=== PATIENT | female | born 1955 | race Caucasian/White ===

== ENCOUNTER 2017-08-05 08:41 | Outpatient (CLI) | payer OTHER ==
--- NOTE | 2017-08-05 14:46 | ULT ---
ABDOMEN ULTRASOUND COMPLETE: Date: 08/05/17 HISTORY: Elevated LFTs. COMPARISON: None. TECHNIQUE: Utilizing a multihertz transducer, sonographic imaging of the abdomen is performed in the longitudina l and transverse plane. FINDINGS: Visualized aorta has a normal caliber measuring 1.8 cm. Visualized IVC is unremarkable. The head and proximal pancreatic body have a normal echotexture. Remainder of the pancreas is obscured. Heterogeneous echotexture of the liver. Right hepatic lobe measures 14.6 cm. Limited evaluation for h epatic masses and intrahepatic biliary dilatation. Multiple echogenic foci in the lumen of the gallbladder, compatible with gallstones. Largest gallston e measures 1.8 x 1.5 x 1.9 cm. Gallbladder wall is not thickened. No pericholecystic fluid. Negative Burgess's sign. Common bile duct diameter is 0.4 cm. Right and left kidney have a normal cortical echotexture. Bilaterally, no hydronephrosis. Right kidne y measures 8.2 x 4.6 x 5.2 cm. Left kidney measures 9.5 x 4.8 x 4.1 cm. There is scarring in the left upper pole. Spleen has a normal echotexture, measuring 7.4 cm. There appears to be a calcification in the dependent portion of the urinary bladder measuring 1.5 x 1 .0 x 1.6 cm. IMPRESSION: 1. Heterogeneous hepatic parenchymal echotexture. If there is concern for hepatic masses, consider l iver mass protocol CT. 2. Sonographic evidence of cholelithiasis without evidence of cholecystitis. 3. Bladder calculus. POS: [facility]
== END 2017-08-05 08:42 | disposition home or self-care (01) ==
LOC: ULT 08:41
PROVIDERS: ATTEND Physician Assistant
DX: R74.8 Abnormal levels of other serum enzymes (principal); K76.89 Other specified diseases of liver; K80.20 Calculus of gallbladder without cholecystitis without obstruction; N21.0 Calculus in bladder
CPT/HCPCS: 76700

== ENCOUNTER 2017-09-16 07:23 | Day surgery (SDC) | payer OTHER ==
[2017-09-13 09:14] VITALS: BMI 28.1
[~2017-09-16 07:23] MED LIST: FLU VACC QS2017-18 36 mo. & older 0.5 ML SYRINGE IM ONE
[2017-09-16 07:43] LABS: Hemoglobin 13.5 g/dL (12.0-16.0); Mean Corpuscular HGB CONC 33.6 g/dL (32.0-36.0); Mean Corpuscular Hemoglobin 29.1 pg (27.0-31.0); Mean Corpuscular Volume 86.5 fl (81.0-99.0); Mean Platelet Volume 6.8 fL (7.4-10.4); Platelet Count 321 thou/uL (130-400); RBC Distribution Width 12.4 % (11.5-14.5); Red Blood Cell (RBC) Count 4.65 mill/uL (4.20-5.40); White Blood Cell (WBC) Count 5.6 thou/uL (4.8-10.8)
[2017-09-16 07:51] LABS: Prothrombin Time 13.2 SEC (12.0-14.7)
[2017-09-16 08:14] VITALS: BP 125/81; TEMP 98.4
[2017-09-16] MEDS ORDERED: Sodium Bicarbonate 2.5 MEQ/5 ML VIAL ONE (08:34)
[2017-09-16] MEDS ORDERED: Midazolam HCl 2 mg/2 ml Vial ONE (08:34)
[2017-09-16] MEDS ORDERED: Fentanyl 100 MCG/2 ML VIAL ONE (08:34)
--- NOTE | 2017-09-16 09:31 | ULT ---
ULTRASOUND GUIDED HEPATIC BIPOSY: INDICATION: Abnormal LFTs. TECHNIQUE: Informed consent was obtained. Preprocedure ultrasound was performed for guidance purposes. A site overlying the left hepatic lobe was marked. This site was prepped and draped in the usual sterile fa shion. The patient under conscious sedation under guidance of the radiology nurse. The patient rece ived 50 mcg of IV Fentanyl and 1 mg of IV Versed. The site was prepped and draped in the usual steri le fashion. Buffered 1% lidocaine was administered to the overlying subcutaneous tissues, abdominal musculature, and overlying liver capsule. A small incision was made within the anterior midline abdo luisa wall. A 17-gauge Trocar needle was guided down into the left hepatic lobe. The inner stylette was removed. An 18-gauge core biopsy device was introduced into the trocar. One sample was obtaine d into the left hepatic lobe. The core sample was proved to be adequate upon placement within the sp ecimen cup. The inner stylette was replaced. The needle was removed. Pressure was held at the biop sy site until hemostasis was obtained. Postprocedural ultrasound images demonstrated no significant intraparenchymal hematoma. The patient tolerated the procedure without difficulty. IMPRESSION: Successful ultrasound-guided nonfocal hepatic biopsy. POS: [facility]
== END 2017-09-16 10:10 | disposition home or self-care (01) ==
LOC: ULT 07:23
PROVIDERS: ATTEND Internal Medicine
PROC: 0FB23ZX Excision of Left Lobe Liver, Percutaneous Approach, Diagnostic (ICD-10-PCS; principal; 2017-09-16)
DX: K73.9 Chronic hepatitis, unspecified (principal); K21.9 Gastro-esophageal reflux disease without esophagitis; I10 Essential (primary) hypertension; M06.9 Rheumatoid arthritis, unspecified; Z88.6 Allergy status to analgesic agent; Z79.899 Other long term (current) drug therapy; Z96.643 Presence of artificial hip joint, bilateral; Z98.890 Other specified postprocedural states; Z87.891 Personal history of nicotine dependence
CPT/HCPCS: 36415; 47000; 76942; 85027; 85610; 85730; 88307; 88313; 99152; 99153; J2250; J3010

== ENCOUNTER 2019-07-10 14:53 | Observation (INO) | payer MEDICARE ==
[2019-07-10 16:21] LABS: #Lymphocytes 1.2 thou/uL (1.20-3.40); #Monocytes 1.1 thou/uL (0.11-0.59); #Neutrophils 6.1 thou/uL (1.40-6.50); %Basophils 0.2 % (0.0-1.0); %Eosinophils 0.4 % (0.0-10.0); %Lymphocytes 13.9 % (21.0-51.0); %Monocytes 12.7 % (0.0-10.0); %Neutrophils 72.9 % (42.0-75.0); Hemoglobin 12.5 g/dL (12.0-16.0); Mean Corpuscular HGB CONC 35.9 g/dL (32.0-36.0); Mean Corpuscular Hemoglobin 30.8 pg (27.0-31.0); Mean Corpuscular Volume 85.7 fL (78.0-98.0); Platelet Count 375 thou/uL (130-400); RBC Distribution Width 12.7 % (11.5-14.5); Red Blood Cell (RBC) Count 4.06 mill/uL (4.20-5.40); White Blood Cell (WBC) Count 8.3 thou/uL (4.8-10.8)
[2019-07-10 16:26] LABS: Bacteria/HPF None Seen HPF (None Seen); Bilirubin Negative (Negative); Blood, Urine Trace (Negative); Clarity Turbid (Clear); Glucose, Urine (Dipstick) Normal (Negative); Leukocyte Negative Leu/uL (Negative); Nitrite Negative (Negative); Protein, Urine (Dipstick) Negative (Neg-Trace); RBC/HPF 0-3 HPF (0-3); Squamous Epithelial 0-3 HPF (0-3); Urobilinogen Normal mg/dL (Less than 2); WBC/HPF 0-3 HPF (0-3)
[2019-07-10 16:40] LABS: Potassium, Urine 12.1 mmol/L
[2019-07-10 16:43] LABS: ALT (SGPT) 18 U/L (8-55); AST (SGOT) 37 U/L (5-34); Albumin 5.3 g/dL (3.4-4.8); Alkaline Phosphatase 189 U/L (40-110); Anion Gap 17 mmol/L (10-20); BUN (Urea Nitrogen) 13 mg/dL (9.8-20.1); Bilirubin, Total 0.4 mg/dL (0.2-1.2); Calc. Creatinine Clearance 0 mL/min (70-130); Calcium 10.1 mg/dL (7.8-10.44); Carbon Dioxide 27 mmol/L (23-31); Chloride 80 mmol/L (98-107); Estimated GFR-MDRD 54; Globulin 2.9 g/dL (2.4-3.5); Glucose 125 mg/dL (80-115); Potassium 3.6 mmol/L (3.5-5.1); Protein, Total 8.2 g/dL (6.0-8.3); Sodium 120 mmol/L (136-145)
[2019-07-10 20:10] VITALS: BMI 25.5
[2019-07-10] MEDS ORDERED: Senokot S 8.6-50 MG TAB PO PRN (22:34)
[2019-07-10] MEDS ORDERED: Acetaminophen 325 MG TAB PO PRN (22:34)
[2019-07-10] MEDS ORDERED: Amitriptyline HCl 100 MG TAB PO SCH (23:15)
--- NOTE | 2019-07-10 23:26 | HP ---
PRIMARY CARE PHYSICIAN: Silvana Mclean PA-C CHIEF COMPLAINT: Abnormal labs. HISTORY OF PRESENT ILLNESS: Ms. Diaz is a 63-year-old female who came to the emergency room today after being told by her PCP that her lab values are abnormal. She reports that she thought she was getting a UTI on Saturday, started drinking between 100 and 200 mL of water since Saturday to try and flush out her system. The patient reports she has a prolapsed bladder which causes her pain intermittently. She reports some vaginal pain with some burning on urination. She reports that her urinalysis at the clinic today was negative for UTI, but they called her back to tell her that her sodium was low and that she needed to go to the emergency room. She denied any fevers or chills. Sodium was 120, chloride was 80, glucose 125, serum osmo 261, AST 37, ALT 18, alkaline phosphatase 189, albumin 5.3, hemoglobin 12.5, hematocrit 34.8, and platelet count 375. Urinalysis was turbid, negative for nitrites or leukocyte esterase. Bacteria was positive for trace amount of blood. Urine osmo was 131, urine sodium was 28, urine potassium is 12.1. The patient was subsequently admitted to the observation unit for further management. The patient was put on lisinopril and hydrochlorothiazide which she reports may contribute to her sodium. REVIEW OF SYSTEMS: The patient denies any symptoms other than some dysuria, increased frequency. Reports vaginal pain. Reports some confusion. All other systems are reviewed and are negative unless mentioned in the HPI. PAST MEDICAL HISTORY: Pertinent for rheumatoid arthritis, gallstones, hypertension, prolapsed bladder, autoimmune hepatitis. PAST SURGICAL HISTORY: Bilateral hip surgery, knee surgery, tubal ligation. SOCIAL HISTORY: Denies any alcohol or drug use. She is a former smoker, quit more than 10 years ago. Lives at home by herself. KNOWN ALLERGIES: Aleve. CURRENT MEDICATIONS: 1. Azathioprine 50 mg 2 tabs once a day at bedtime. 2. Amitriptyline 50 mg p.o. once a day at bedtime. 3. Zantac 150 mg p.o. once a day. PHYSICAL EXAMINATION: VITAL SIGNS: Blood pressure 169/91, pulse is 90, respirations 18, temperature is 98.6, PO2 saturations are 100% on room air. CONSTITUTIONAL: The patient appears nontoxic. She is alert and oriented to person, place and time. HEENT: Head is atraumatic and normocephalic. Eyes, pupils are equally round and reactive to light. Extraocular muscles are intact. ENT, mouth exam is normal. Mucous membranes are moist. NECK: Normal range of motion. Trachea is midline. RESPIRATORY/CHEST: Breath sounds are clear. Chest expansion is equal. CARDIOVASCULAR: Heart rate regular rate and rhythm. Heart sounds are normal. ABDOMEN: Nontender. Bowel sounds are heard. BACK: Normal range of motion. No CVA tenderness. EXTREMITIES: Upper extremities, normal inspection, normal range of motion. Lower extremities, normal inspection, normal range of motion, pedal pulses are normal, no edema is noted. NEURO: The patient is alert and oriented to person, place, and time. Speech is normal. SKIN: Warm, dry, and normal in color. IMAGING: EKG shows normal sinus rhythm, beats per minute 100, no ectopics. QTc is 464. ASSESSMENT AND PLAN: 1. Hyponatremia. We will fluid restrict to 1000 mL per hour. Ask Nephrology to consult. Recheck lab values in the morning. 2. Autoimmune hepatitis. We will trend lab values. Restart home medications. 3. History of hypertension. We are going to hold her lisinopril and hydrochlorothiazide for now. We will add p.r.n. as needed. 4. Deep venous thrombosis and gastrointestinal prophylaxis have been started. 5. Hospital course is dependent on clinical findings. Job ID: [id number]
[2019-07-11 05:50] LABS: ALT (SGPT) 15 U/L (8-55); AST (SGOT) 33 U/L (5-34); Albumin 4.9 g/dL (3.4-4.8); Alkaline Phosphatase 173 U/L (40-110); Anion Gap 16 mmol/L (10-20); BUN (Urea Nitrogen) 14 mg/dL (9.8-20.1); Bilirubin, Total 0.4 mg/dL (0.2-1.2); Calc. Creatinine Clearance 68 mL/min (70-130); Calcium 10.1 mg/dL (7.8-10.44); Carbon Dioxide 27 mmol/L (23-31); Chloride 89 mmol/L (98-107); Estimated GFR-MDRD 57; Globulin 2.8 g/dL (2.4-3.5); Glucose 123 mg/dL (80-115); Potassium 3.5 mmol/L (3.5-5.1); Protein, Total 7.7 g/dL (6.0-8.3); Sodium 128 mmol/L (136-145)
[2019-07-11 06:01] LABS: Band 2 % (5-11); Hemoglobin 12.2 g/dL (12.0-16.0); Lymphocytes 17 % (21-51); MDiff Complete? YES; Mean Corpuscular HGB CONC 34.6 g/dL (32.0-36.0); Mean Corpuscular Hemoglobin 29.9 pg (27.0-31.0); Mean Corpuscular Volume 86.4 fL (78.0-98.0); Mean Platelet Volume 6.4 fL (7.4-10.4); Monocytes 8 % (0-10); Neutrophil 73 % (42-75); Platelet Count 380 thou/uL (130-400); Platelet Morphology Comment Appears Adequate; RBC Distribution Width 12.8 % (11.5-14.5); RBC Morphology Normal; Red Blood Cell (RBC) Count 4.07 mill/uL (4.20-5.40); White Blood Cell (WBC) Count 8.1 thou/uL (4.8-10.8)
--- NOTE | 2019-07-11 07:55 | ULT ---
US Renal Bilateral STANDARD History: Hyponatremia Comparison: Abdominal ultrasound 2017 Findings: Real-time grayscale and color evaluation of the kidneys and urinary bladder was performed. Right kidney measures 9.5 x 5.1 x 5.3 cm and the left kidney measures 9 x 4.7 x 4.1 cm. There is a la rge stone within the urinary bladder measuring up to 2 cm in size. Both ureteral jets visualized. No renal mass, hydronephrosis, or abnormal calcifications. Impression: Large calculus within the urinary bladder otherwise no evidence for obstructive uropathy.
[2019-07-11] MEDS ORDERED: Enoxaparin Sodium 40 MG/0.4 ML SYRINGE SC SCH (09:00)
[2019-07-11] MEDS ORDERED: Famotidine 20 MG TAB PO SCH (09:00)
--- NOTE | 2019-07-11 10:45 | CON ---
DATE OF CONSULTATION: 07/11/2019 SERVICE: Nephrology. REQUESTING PROVIDER: MYRNA Asher REASON FOR CONSULTATION: Hyponatremia. HISTORY OF PRESENT ILLNESS: A 63-year-old female with known history of rheumatoid arthritis, complicated with autoimmune hepatitis, who is on lisinopril and hydrochlorothiazide, admitted at the request of the primary care physician due to hyponatremia. The patient reportedly developed a genital discomfort about 6 days ago. She had felt she had UTI being taking large amounts of water and free fluid including cranberry juice and milk. She subsequently developed ill feeling associated with worsening ringing sensation in the ear, gait instability, and feeling differently, hence she presented to the PCP yesterday, 07/10/2019. Evaluation showed no UTI; however, the patient was found to have hyponatremia with serum sodium of 120, which is acutely lower than her baseline. Most recent prior sodium in the record, however, was 07/30/2017, when it was 137. The patient, however, reported that the education site manager had told her that her sodium is low at one of her visit. The patient also admitted to an episode of vomiting 2 days prior to presentation, but reported poor oral intake and massive amount of water intake with a view to flush out the urinary tract infection. On presentation to the ED, the patient was found to have a sodium of 121. The patient was treated with fluid restriction to 1 L in the last 12 to 15 hours with appropriate increase in plasma sodium from 120 on admission to 128 currently this morning. The ringing sensation in the ear is back to baseline and she feels a lot better. PAST MEDICAL HISTORY: 1. Rheumatoid arthritis. 2. Cholelithiasis. 3. Hypertension. 4. Bladder prolapse. 5. Autoimmune hepatitis. 6. Bilateral flatfoot. 7. Chronic tinnitus. PAST SURGICAL HISTORY: 1. Bilateral hip replacement. 2. Right knee surgery. 3. Tubal ligation. FAMILY HISTORY: Reviewed, but noncontributory. SOCIAL HISTORY: The patient lives alone. She is a former smoker, quit more than 10 years ago. Lives alone by herself. Denied alcohol or recreational drug use. ALLERGIES: ALEVE. CURRENT HOME MEDICATIONS: 1. Amitriptyline 50 mg p.o. daily at bedtime. 2. Azathioprine 100 mg p.o. daily at bedtime. 3. Ranitidine 150 mg p.o. daily. 4. Lisinopril and hydrochlorothiazide. REVIEW OF SYSTEMS: A 12-point review of systems performed was negative other than pertinent positives and negatives included in the history of present illness. PHYSICAL EXAMINATION: VITAL SIGNS: Temperature 98.7, pulse 89, respiratory rate 20, SpO2 of 95 on room air, and blood pressure is 125/67. GENERAL: Healthy-looking female, in no distress. Afebrile. Anicteric. Acyanotic. HEENT: Normocephalic and atraumatic. Oral mucosa is moist. NECK: Supple and nontender with good range of motion. No JVD or masses appreciated. CARDIOVASCULAR: Regular rhythm and rate with normal heart sounds 1 and 2. No murmur was appreciated. RESPIRATORY: Good air entry bilaterally with no crackle or rhonchi or use of accessory muscles. GI: Full, soft, nontender, and nondistended with normal bowel sounds. EXTREMITIES: Mild deformity of the hand due to rheumatoid arthritis noted. Bilateral flatfoot also noted. Otherwise, all extremities are grossly normal with no edema or erythema. TECHNICAL MARKETING ENGINEER: Conscious, alert, oriented x3 with appropriate mental status. Cranial nerves 2 through 12 are grossly intact. The patient moves all extremities. DIAGNOSTIC DATA: CBC showed WBC count of 8.1, hemoglobin of 12.2, MCV of 86.4, and platelets of 380. CMP today showed sodium 128, potassium 3.5, chloride 89, CO2 of 27, BUN 14, creatinine 0.98, glucose 123, calcium 10.1, total bilirubin 0.4, AST 33, ALT 15, alkaline phosphatase 173, total protein 7.7, albumin 4.9, and globulin 2.8. Serum osmolality is 261 while urine osmolality is 131. Urinalysis showed turbid, colorless urine with pH of 7.0; specific gravity of 1.004; negative protein, ketone, nitrite, bilirubin, and leukocyte esterase. Microscopy showed 0 to 3 rbc and 0 to 3 wbc with no bacteria seen. Urine electrolytes showed sodium 28 and potassium 12.1. ASSESSMENT: 1. Acute hyponatremia: This is due to excessive free water intake plus poor solute intake. Hypotonic urine in the face of hypotonic saline is appropriate response. However, urine sodium of 28 and urine osmolality above 100 is suggestive of inappropriate response to hypotonic saline. This is felt to be due to thiazide diuretic use. Plasma sodium is trending upwards appropriately with fluid restriction. The patient also is eating more. 2. History of hypertension: Blood pressure is currently controlled. We will hold antihypertensives for now. 3. Abnormal liver enzymes: Due to autoimmune hepatitis. 4. Autoimmune hepatitis. 5. Rheumatoid arthritis. 6. Chronic tinnitus: Stable. 7. Genital prolapse. PLAN: 1. With plasma sodium already up 8 counts in the last 12 to 15 hours with fluid restriction, we will relax fluid restriction a little bit to allow the patient to take a 1500 mL of water in a 24-hour period. We will repeat BMP later today at 3:00 a.m. If plasma sodium continued to trend up, the patient can be discharged home to repeat labs in 4 days. 2. Hypertension. Blood pressure is well controlled at this point. I will recommend holding all antihypertensives. However, if it should be restarted, we will avoid thiazide diuretics for now. 3. Continue other medications. DISPOSITION: If sodium is improving on repeat BMP later this afternoon, the patient can be discharged to do a repeat BMP on 07/15/2019, and follow up with the PCP subsequently. I have provided the patient with my card and she could call if her sodium is not back to normal for followup. Job ID: [id number]
--- NOTE | 2019-07-11 13:57 | PDOC.HOSPP ---
- Subjective Encounter Date: 07/11/19 Encounter Time: 13:55 Subjective: Patient seen and examined. No new complaints. No overnight events. feeling better. No N/V. - Objective Vital Signs & Weight: Vital Signs (12 hours) Temp Pulse Resp BP Pulse Ox 07/11/19 11:25 98 F 86 20 151/73 H 96 07/11/19 07:18 98.7 F 89 20 125/67 95 07/11/19 03:51 98 F 87 14 113/57 L 96 Weight Weight 165 lb I&O: 07/10/19 07/11/19 07/12/19 06:59 06:59 05:59 Intake Total 240 Output Total 400 Balance -160 Result Diagrams: 07/11/19 05:00 07/11/19 05:00 Hospitalist ROS - Medication Medications: Active Medications Generic Name Dose Route Start Last Admin Trade Name Freq PRN Reason Stop Dose Admin Enoxaparin Sodium 40 mg 07/11/19 09:00 07/11/19 08:34 Lovenox SC 40 mg 0900 LOREN Administration Famotidine 20 mg 07/11/19 09:00 07/11/19 08:34 Pepcid PO 20 mg BID LOREN Administration - Exam General Appearance: NAD Eye: anicteric sclera ENT: normocephalic atraumatic Neck: supple Heart: RRR Respiratory: CTAB Gastrointestinal: soft Skin: normal turgor Musculoskeletal: normal tone Psychiatric: normal affect Hosp A/P (1) Hyponatremia Code(s): E87.1 - HYPO-OSMOLALITY AND HYPONATREMIA Status: Acute (2) Hypo-osmolar hyponatremia Code(s): E87.1 - HYPO-OSMOLALITY AND HYPONATREMIA Status: Acute (3) Autoimmune hepatitis Code(s): K75.4 - AUTOIMMUNE HEPATITIS Status: Acute (4) HTN (hypertension) Code(s): I10 - ESSENTIAL (PRIMARY) HYPERTENSION Status: Acute - Plan old records reviewed/req, DVT proph w/lovenox, GI proph awaiting Na level from 1500 today. If trending up, will D/C home. limit fluid intake. Hold HCTZ. f/u with PCP in 1-2 weeks.
[2019-07-11 15:11] VITALS: BP 125/68; TEMP 98.3
[2019-07-11 15:49] LABS: Anion Gap 15 mmol/L (10-20); BUN (Urea Nitrogen) 13 mg/dL (9.8-20.1); Calc. Creatinine Clearance 60 mL/min (70-130); Calcium 10.2 mg/dL (7.8-10.44); Carbon Dioxide 31 mmol/L (23-31); Chloride 90 mmol/L (98-107); Estimated GFR-MDRD 49; Glucose 97 mg/dL (80-115); Potassium 3.9 mmol/L (3.5-5.1); Sodium 132 mmol/L (136-145)
--- NOTE | 2019-07-11 16:33 | DIS ---
DATE OF ADMISSION: 07/10/2019 DATE OF DISCHARGE: 07/11/2019 DISCHARGING DIAGNOSES: 1. Hypo-osmolar hyponatremia. 2. Polydipsia. 3. History of rheumatoid arthritis. 4. History of hypertension. 5. History of autoimmune hepatitis. 6. Hydrochlorothiazide use. 7. Also, bladder stone. CONSULT: Dr. Busch from Nephrology. IMAGING STUDIES: Renal ultrasound which showed a large bladder stone. PROCEDURES PERFORMED: None. HOSPITAL COURSE: This 63-year-old female was admitted to the hospital with abnormal labs, found to have sodium. The patient was apparently drinking a lot of water. She was having some burning urination and also lower abdominal pain, and she was trying to drink water to flush fluid out and relieve the pain, but had blood work done as outpatient and was found to have a sodium of 120 and was sent to the hospital. The patient was kept on fluid restriction, and her sodium got better. She is also being discharged. Her hydrochlorothiazide was also thought to be contributing to the hyponatremia, which was stopped, and she will be only taking lisinopril 20 mg daily on discharge. No other medication changes done. CONDITION ON DISCHARGE: Stable. DISPOSITION: Home. DISCHARGE MEDICATIONS: 1. Amitriptyline 50 mg p.o. at bedtime. 2. Azathioprine 100 mg p.o. at bedtime. 3. Ranitidine 150 p.o. daily. 4. Lisinopril 20 mg daily. 5. I reduced her Naprosyn. DISCHARGE INSTRUCTIONS: For her bladder stone, the patient was advised to follow up with primary care and Urology. The patient denies any pain. DISCHARGE FOLLOWUP: Follow up with primary care in 1 to 2 weeks and follow up with Urology as outpatient as per the recommendation of primary care. Job ID: [id number]
[2019-07-11] MEDS ORDERED: Amitriptyline HCl 100 MG TAB PO SCH (21:00)
[2019-07-11] MEDS ORDERED: azaTHIOprine 50 MG TAB PO SCH (21:00)
[2019-07-12] MEDS ORDERED: Lisinopril 20 MG TAB PO SCH (09:00)
== END 2019-07-11 16:34 | disposition home or self-care (01) ==
LOC: ERS 14:53 → 2SW 19:33
PROVIDERS: ADMIT Internal Medicine; ATTEND Internal Medicine
DX: E87.1 Hypo-osmolality and hyponatremia (principal); R63.1 Polydipsia; M06.9 Rheumatoid arthritis, unspecified; I10 Essential (primary) hypertension; K75.4 Autoimmune hepatitis; N21.0 Calculus in bladder; N81.10 Cystocele, unspecified; H93.19 Tinnitus, unspecified ear; M21.42 Flat foot [pes planus] (acquired), left foot; M21.41 Flat foot [pes planus] (acquired), right foot; Z87.891 Personal history of nicotine dependence; Z79.899 Other long term (current) drug therapy; Z88.8 Allergy status to other drugs, medicaments and biological substances
CPT/HCPCS: 36415; 76770; 80053; 81003; 81015; 82436; 83930; 83935; 84133; 84300; 84443; 85025; 93005; 94760; 96372; G0378; J1650

== ENCOUNTER 2019-11-11 07:59 | Outpatient (CLI) | payer MEDICARE ==
--- NOTE | 2019-11-11 10:56 | CT ---
CT ABDOMEN AND PELVIS WITH AND WITHOUT IV CONTRAST: Date: 11/11/2019 INDICATION: History of bladder mass and bladder calculus. COMPARISON: Renal ultrasound dated 07/11/2019. TECHNIQUE: Multiple CT images were obtained of the abdomen and pelvis with and without contrast utilizing urogra m protocol. 70 mL of Isovue-370 administered for exam. FINDINGS: Lung bases are clear. No definite renal or ureteral calculus evident. No hydronephrosis evident. There is prominent scarrin g and atrophy involving the superior pole of the left kidney. There is a completely duplicated left r enal collecting system with a suspected ureterocele seen at the level of the superior moiety insertio n to the bladder. Within the suspected ureterocele is a 1.5 cm calcification/stone likely correspondi ng the bladder stone identified on the renal ultrasound dated 07/11/2019. No mata hydronephrosis is demonstrated. The right renal collecting system is normal in appearance with a single drain ureter an d without evidence of hydronephrosis. No gross urothelial lesion is identified. Beam scattering and h ardening artifact from bilateral hip replacements limits evaluation of the bladder. No focal renal lesion is demonstrated. There are numerous stones within the gallbladder. No focal hepatic lesion is demonstrated. The pancreas, adrenal glands, and spleen appear within solis l limits. No free fluid or enlarged lymph nodes are evident. There is mild scattered vascular calcification involving the abdominopelvic vasculature. There is a n ormal retrocecal appendix. There are a few scattered diverticula involving the colon. Small bowel is normal appearing. No acute osseous abnormality is evident. The reproductive structures are poorly demonstrated due to the artifact in the lower pelvis. IMPRESSION: 1. Duplicated left renal collecting system with prominent scarring and atrophy of the superior moiet y, likely related to either chronic reflux or infection. The superior moiety demonstrates a ureteroce le with associated calcification/stone. Details at the level of the bladder are slightly limited due to beam scattering and beam hardening artifact from the patient's bilateral total hip prostheses. Cy stoscopy recommended. 2. Cholelithiasis. 3. Colonic diverticulosis. POS: [facility]
[2019-11-11] MEDS ORDERED: Iopamidol-370 76% 500 ML 1 ML ONE (13:25)
== END 2019-11-11 08:00 | disposition home or self-care (01) ==
LOC: BICCT 07:59
PROVIDERS: ATTEND Urology
DX: N32.89 Other specified disorders of bladder (principal); N26.1 Atrophy of kidney (terminal); K80.20 Calculus of gallbladder without cholecystitis without obstruction; K57.30 Diverticulosis of large intestine without perforation or abscess without bleeding; N28.89 Other specified disorders of kidney and ureter
CPT/HCPCS: 74178; 82565; Q9967

== ENCOUNTER 2021-02-01 11:23 | Outpatient (CLI) | payer MEDICARE | END 2021-02-01 11:24 | disposition home or self-care (01) | LOC: BICMAMMO 11:23 | PROVIDERS: ATTEND Physician Assistant | DX: Z12.31 Encounter for screening mammogram for malignant neoplasm of breast (principal) | CPT/HCPCS: 77063; 77067 ==

== ENCOUNTER 2021-02-03 09:45 | Outpatient (CLI) | payer MEDICARE | END 2021-02-03 09:46 | disposition home or self-care (01) | LOC: BICMAMMO 09:45 | PROVIDERS: ATTEND Physician Assistant | DX: N64.89 Other specified disorders of breast (principal); R92.1 Mammographic calcification found on diagnostic imaging of breast; N60.02 Solitary cyst of left breast | CPT/HCPCS: 76642; 77065; G0279 ==

== ENCOUNTER 2022-12-18 13:36 | Outpatient (CLI) | payer MEDICARE | END 2022-12-18 13:37 | disposition home or self-care (01) | LOC: BICMAMMO 13:36 | PROVIDERS: ATTEND Physician Assistant | DX: R92.8 Other abnormal and inconclusive findings on diagnostic imaging of breast (principal); M85.832 Other specified disorders of bone density and structure, left forearm; N64.89 Other specified disorders of breast; Z91.89 Other specified personal risk factors, not elsewhere classified; Z78.0 Asymptomatic menopausal state | CPT/HCPCS: 76642; 77066; 77080; G0279 ==

== ENCOUNTER 2024-06-02 11:24 | Outpatient (CLI) | payer MEDICARE | END 2024-06-02 11:25 | disposition home or self-care (01) | LOC: BICMAMMO 11:24 | DX: Z12.31 Encounter for screening mammogram for malignant neoplasm of breast (principal) | CPT/HCPCS: 77067 ==

== ENCOUNTER 2024-06-04 14:11 | Outpatient (CLI) | payer MEDICARE | END 2024-06-04 14:12 | disposition home or self-care (01) | LOC: BICULT 14:11 | DX: E04.2 Nontoxic multinodular goiter (principal) | CPT/HCPCS: 76536 ==